=== PATIENT | female | born 1940 | race Caucasian/White ===

== ENCOUNTER 2016-11-01 13:18 | Inpatient (IN) | payer MEDICARE ==
[~2016-11-01] VITALS: Ht 154.9 cm; Wt 58.5 kg
[2016-11-01 14:00] VITALS: BP 123/67
[2016-11-01] MEDS ORDERED: IRBE1TAB43 PO (14:49)
[2016-11-01] MEDS ORDERED: INSU100I13 (14:49)
[2016-11-01] MEDS ORDERED: METF500T7 (14:49)
[2016-11-01] MEDS ORDERED: CIPR-213 (14:49)
[2016-11-01] MEDS ORDERED: LORA1TAB PO (14:49)
[2016-11-01] MEDS ORDERED: INSU100I19 SQ (14:49)
[2016-11-01] MEDS ORDERED: LOSA1TAB37 (14:49)
[2016-11-01] MEDS ORDERED: CLON0.1T PO (14:49)
[2016-11-01] MEDS ORDERED: PANT40TA4 PO (14:49)
[2016-11-01] MEDS ORDERED: BACL-141 PO (14:49)
[2016-11-01] MEDS ORDERED: ALEN70TA46 (14:49)
[2016-11-01] MEDS ORDERED: AMLO5TAB88 PO (14:49)
[2016-11-01] MEDS ORDERED: SAXA2.5T (14:49)
[2016-11-01] MEDS ORDERED: AMLO2.5T45 PO (14:49)
[2016-11-01] MEDS ORDERED: CEPH500C2 PO (14:49)
[2016-11-01] MEDS ORDERED: TRAM50TA3 PO (14:49)
[2016-11-01 16:00] VITALS: BP 93/57
[2016-11-01] MEDS ORDERED: ONDANSETRON HCL 4MG/2ML VIAL IV PRN (16:00)
[2016-11-01] MEDS ORDERED: IPRATROPIUM/ALBUTEROL 0.5-3(2.5)MG/3ML NEB INH PRN (16:00)
[2016-11-01] MEDS ORDERED: CLONIDINE 0.1MG TABLET PO PRN (16:00)
[2016-11-01] MEDS ORDERED: ACETAMINOPHEN 325MG TABLET PO PRN (16:00)
[2016-11-01] MEDS ORDERED: DEXT 5%/0.45% NACL 1000ML 1,000 ML IV SCH (16:15)
[2016-11-01] MEDS ORDERED: LEVOFLOXACIN 500MG PREMIX 100 ML IV SCH (16:30)
[2016-11-01] MEDS ORDERED: METRONIDAZOLE 500 MG PREMIX 100 ML IV SCH (16:30)
[2016-11-01] MEDS ORDERED: DEXTROSE 50% WATER 50ML SYRINGE IV PRN (16:45)
[2016-11-01] MEDS ORDERED: TRAMADOL 50MG TABLET PO PRN (16:45)
[2016-11-01] MEDS: INSULIN LISPRO 100 UNITS/ML SUBCUT SCH ×2 (17:12→21:34)
[2016-11-01] MEDS: BLOOD SUGAR DIAGNOSTIC STRIP TEST SCH ×2 (17:12→21:26)
[2016-11-01] MEDS ORDERED: LEVOFLOXACIN 500MG PREMIX 100 ML IV NR (18:00)
[2016-11-01 20:00] VITALS: BP 143/59
[2016-11-01 20:42] LABS: BASOPHILS % 0.7 % (0.0-2.0); EOSINOPHILS % 2.7 % (0.0-5.0); HEMATOCRIT. 34.9 % (36.0-48.0); HEMOGLOBIN. 11.8 g/dL (12.0-16.0); LYMPHOCYTES % 32.8 % (20.0-50.0); MEAN CORPUSCULAR VOLUME 88.5 fL (81.0-99.0); MEAN PLATELET VOLUME 8.9 fl (7.4-10.4); NEUTROPHILS % 53.8 % (40.0-76.0); PLATELET 236 x1000/uL (130-400); RED BLOOD CELL COUNT 3.94 mill/uL (4.2-5.4); RED CELL DISTRIBUTION WIDTH 13.4 % (11.6-14.6)
[2016-11-01 20:47] LABS: CHLORIDE 100 mEq/L (98-107); INR 0.9; PARTIAL THROMBOPLASTIN TIME 24.6 sec (23.4-31.0); PROTHROMBIN TIME 9.4 sec (9.4-11.6)
[2016-11-01 20:52] LABS: CARBON DIOXIDE 28 mEq/L (21-32)
[2016-11-01] MEDS: DEXT 5%/0.45% NACL 1000ML 1,000 ML IV SCH (22:58)
[2016-11-02] VITALS: BP 129/54
[2016-11-02 04:00] VITALS: BP 102/52
[2016-11-02 07:10] LABS: BASOPHILS % 0.9 % (0.0-2.0); EOSINOPHILS % 4.2 % (0.0-5.0); HEMATOCRIT. 34.3 % (36.0-48.0); HEMOGLOBIN. 11.7 g/dL (12.0-16.0); LYMPHOCYTES % 31.7 % (20.0-50.0); MEAN CORPUSCULAR HEMOGLOBIN 30.2 pg (28.0-32.0); MEAN CORPUSCULAR VOLUME 88.6 fL (81.0-99.0); MEAN PLATELET VOLUME 9.1 fl (7.4-10.4); MONOCYTES % 10.4 % (2.0-8.0); NEUTROPHILS % 52.8 % (40.0-76.0); PLATELET 237 x1000/uL (130-400); RED BLOOD CELL COUNT 3.87 mill/uL (4.2-5.4)
[2016-11-02] MEDS ORDERED: PANTOPRAZOLE 40MG DR TABLET PO SCH (07:20)
[2016-11-02] MEDS: BLOOD SUGAR DIAGNOSTIC STRIP TEST SCH ×2 (07:21→13:17)
[2016-11-02 07:39] LABS: CARBON DIOXIDE 28 mEq/L (21-32); CHLORIDE 101 mEq/L (98-107)
[2016-11-02 08:00] VITALS: BP 102/57
[2016-11-02] MEDS: INSULIN LISPRO 100 UNITS/ML SUBCUT SCH ×2 (09:01→13:36)
[2016-11-02 12:00] VITALS: BP 127/58
[2016-11-02] MEDS: DEXT 5%/0.45% NACL 1000ML 1,000 ML IV SCH (13:37)
[2016-11-02 15:56] VITALS: BP 127/58
[2016-11-02 16:00] VITALS: BP 106/60
== END 2016-11-02 16:30 | disposition home or self-care (01) | DRG 446 ==
LOC: 6EST 13:18
PROVIDERS: ADMIT Internal Medicine Critical Care Medicine; ATTEND Internal Medicine Critical Care Medicine
DX: K80.20 Calculus of gallbladder without cholecystitis without obstruction (principal); E11.9 Type 2 diabetes mellitus without complications; I10 Essential (primary) hypertension; M19.90 Unspecified osteoarthritis, unspecified site; M81.0 Age-related osteoporosis without current pathological fracture; Z96.652 Presence of left artificial knee joint; Z79.2 Long term (current) use of antibiotics; Z79.4 Long term (current) use of insulin; Z79.84 Long term (current) use of oral hypoglycemic drugs; Z79.899 Other long term (current) drug therapy
CPT/HCPCS: 36415; 71010; 74181; 76705; 80048; 80076; 82962; 85025; 85610; 85730; 87040; 93005; J1815; J1956; J3490

== ENCOUNTER 2016-11-04 23:36 | Inpatient (IN) | payer MEDICARE ==
[~2016-11-04] VITALS: Ht 152.4 cm; Wt 57.3 kg
[~2016-11-04 23:36] MED LIST: ALEN70TA46; AMLO2.5T45 PO; AMLO5TAB88 PO; BACL-141 PO; CEPH500C2 PO; CIPR-213; CLON0.1T PO; INSU100I13; INSU100I19 SQ; IRBE1TAB43 PO; LORA1TAB PO; LOSA1TAB37; METF500T7; PANT40TA4 PO; SAXA2.5T; TRAM50TA3 PO
[2016-11-05] MEDS ORDERED: SODIUM CHLORIDE 0.9% 1,000 ML IV ONE (01:21)
[2016-11-05] MEDS ORDERED: SODIUM CHLORIDE 0.9% 1000ML BAG (SEPSIS BOLUS) IV ONE (01:30)
[2016-11-05 02:01] LABS: BASOPHILS % 0.9 % (0.0-2.0); EOSINOPHILS % 1.4 % (0.0-5.0); HEMOGLOBIN. 12.1 g/dL (12.0-16.0); LYMPHOCYTES % 20.8 % (20.0-50.0); MEAN CORPUSCULAR HEMOGLOBIN 30.4 pg (28.0-32.0); MEAN CORPUSCULAR VOLUME 88.1 fL (81.0-99.0); MEAN PLATELET VOLUME 8.6 fl (7.4-10.4); MONOCYTES % 9.6 % (2.0-8.0); NEUTROPHILS % 67.3 % (40.0-76.0); PLATELET 235 x1000/uL (130-400); RED BLOOD CELL COUNT 3.97 mill/uL (4.2-5.4); RED CELL DISTRIBUTION WIDTH 12.9 % (11.6-14.6)
[2016-11-05 02:09] LABS: INR 0.9; PARTIAL THROMBOPLASTIN TIME 24.5 sec (23.4-31.0); PROTHROMBIN TIME 9.8 sec (9.4-11.6)
[2016-11-05 02:18] LABS: CARBON DIOXIDE 27 mEq/L (21-32); CHLORIDE 95 mEq/L (98-107); TROPONIN I 0.25 ng/mL (0.00-0.04)
[2016-11-05 02:44] LABS: AMMONIA 25 uMol/L (<32)
[2016-11-05] MEDS ORDERED: ASPIRIN 81MG TABLET PO ONE (03:15)
[2016-11-05 04:56] LABS: CLARITY URINE CLEAR (CLEAR); COLOR URINE YELLOW (YELLOW); GLUCOSE URINE NEGATIVE (NEGATIVE); KETONES URINE NEGATIVE (NEGATIVE); LEUKOCYTE ESTERASE URINE 1+ (NEGATIVE); NITRITE URINE NEGATIVE (NEGATIVE); OCCULT BLOOD URINE NEGATIVE (NEGATIVE); PROTEIN URINE NEGATIVE (NEGATIVE); UROBILINOGEN URINE 0.2 E.U./dL (0.2-1.0)
[2016-11-05] MEDS ORDERED: HYDROCODONE/ACETAMINOPHEN 5/325MG TABLET PO ONE (08:30)
[2016-11-05] MEDS ORDERED: HYDROCODONE/ACETAMINOPHEN 5/325MG TABLET PO PRN (13:00)
[2016-11-05] MEDS ORDERED: ACETAMINOPHEN 650MG SUPP PR PRN (13:00)
[2016-11-05] MEDS ORDERED: IPRATROPIUM/ALBUTEROL 0.5-3(2.5)MG/3ML NEB INH PRN (13:00)
[2016-11-05] MEDS ORDERED: NA PHOS,M-B/NA PHOS,DI-BA ENEMA 118ML PR PRN (13:00)
[2016-11-05] MEDS ORDERED: CLONIDINE 0.1MG TABLET PO PRN (13:00)
[2016-11-05] MEDS ORDERED: ACETAMINOPHEN 650MG/20.3ML UDC GT PRN (13:00)
[2016-11-05] MEDS ORDERED: MAGNESIUM/ALUMINUM HYDROXIDE/SIMETHICONE 30ML UDC PO PRN (13:00)
[2016-11-05] MEDS ORDERED: DIPHENHYDRAMINE 50MG/ML VIAL IV PRN (13:00)
[2016-11-05 16:00] VITALS: BP 124/47
[2016-11-05] MEDS ORDERED: MECL-109 PO (16:13)
[2016-11-05] MEDS: SODIUM CHLORIDE 0.45% 1,000 ML IV SCH (16:59)
[2016-11-05 17:26] LABS: TROPONIN I 0.13 ng/mL (0.00-0.04)
[2016-11-05] MEDS ORDERED: MECLIZINE 25MG TABLET PO PRN (17:30)
[2016-11-05] MEDS ORDERED: TRAMADOL 50MG TABLET PO PRN (17:45)
[2016-11-05] MEDS ORDERED: DEXTROSE 50% WATER 50ML SYRINGE IV PRN (17:45)
[2016-11-05] MEDS: INSULIN LISPRO 100 UNITS/ML SUBCUT SCH ×2 (18:14→21:00)
[2016-11-05 20:00] VITALS: BP 139/56
[2016-11-05] MEDS: BLOOD SUGAR DIAGNOSTIC STRIP TEST SCH (21:08)
[2016-11-05] MEDS: SODIUM CHLORIDE 0.9% INJ 3ML FLUSH IVF SCH (21:08)
[2016-11-06] VITALS: BP 148/56
[2016-11-06 01:26] LABS: TROPONIN I 0.27 ng/mL (0.00-0.04)
[2016-11-06 04:00] VITALS: BP 146/51
[2016-11-06] MEDS: SODIUM CHLORIDE 0.45% 1,000 ML IV SCH ×2 (05:00→17:05)
[2016-11-06] MEDS: SODIUM CHLORIDE 0.9% INJ 3ML FLUSH IVF SCH ×3 (06:00→21:41)
[2016-11-06 06:28] LABS: BASOPHILS % 0.6 % (0.0-2.0); EOSINOPHILS % 4.4 % (0.0-5.0); HEMATOCRIT. 34.5 % (36.0-48.0); HEMOGLOBIN. 11.9 g/dL (12.0-16.0); LYMPHOCYTES % 32.5 % (20.0-50.0); MEAN CORPUSCULAR HEMOGLOBIN 30.5 pg (28.0-32.0); MEAN CORPUSCULAR VOLUME 88.6 fL (81.0-99.0); MEAN PLATELET VOLUME 8.8 fl (7.4-10.4); NEUTROPHILS % 52.5 % (40.0-76.0); PLATELET 227 x1000/uL (130-400); RED BLOOD CELL COUNT 3.89 mill/uL (4.2-5.4); RED CELL DISTRIBUTION WIDTH 13.2 % (11.6-14.6)
[2016-11-06 06:33] LABS: CARBON DIOXIDE 27 mEq/L (21-32); CHLORIDE 102 mEq/L (98-107); LDL CHOLESTEROL 58 mg/dL (5-100)
[2016-11-06 06:34] LABS: HDL CHOLESTEROL 87 mg/dL (40-59)
[2016-11-06] MEDS: BLOOD SUGAR DIAGNOSTIC STRIP TEST SCH ×4 (07:13→21:34)
[2016-11-06] MEDS ORDERED: PANTOPRAZOLE 40MG DR TABLET PO SCH (07:20)
[2016-11-06 08:11] VITALS: BP 151/58
[2016-11-06] MEDS: AMLODIPINE 2.5MG TABLET PO SCH (08:30)
[2016-11-06] MEDS: HYDROCHLOROTHIAZIDE 12.5MG CAPSULE PO SCH (08:31)
[2016-11-06] MEDS: PANTOPRAZOLE 40MG DR TABLET PO SCH (08:31)
[2016-11-06] MEDS: LOSARTAN POTASSIUM 100 MG TABLET PO SCH (08:31)
[2016-11-06] MEDS: INSULIN LISPRO 100 UNITS/ML SUBCUT SCH ×4 (08:38→21:42)
[2016-11-06] MEDS ORDERED: [UNRECOGNIZED DRUG - OTHER] PO SCH (09:00)
[2016-11-06] MEDS ORDERED: HYDROCHLOROTHIAZIDE PO SCH (09:00)
[2016-11-06] MEDS ORDERED: IRBESARTAN PO SCH (09:00)
[2016-11-06] MEDS: INSULIN DETEMIR UD 100 UNITS/ML SYR SUBCUT SCH (10:00)
[2016-11-06 12:50] VITALS: BP 145/70
[2016-11-06 16:19] VITALS: BP 132/63
[2016-11-06 20:34] VITALS: BP 151/87
[2016-11-06] MEDS: ACETAMINOPHEN 325MG TABLET PO PRN (23:26)
[2016-11-07 00:34] VITALS: BP 116/56
[2016-11-07 04:00] VITALS: BP 138/65
[2016-11-07] MEDS: PANTOPRAZOLE 40MG DR TABLET PO SCH (06:23)
[2016-11-07] MEDS: SODIUM CHLORIDE 0.9% INJ 3ML FLUSH IVF SCH ×3 (06:23→21:47)
[2016-11-07] MEDS: BLOOD SUGAR DIAGNOSTIC STRIP TEST SCH ×4 (06:26→21:50)
[2016-11-07 08:12] VITALS: BP 163/55
[2016-11-07] MEDS: LOSARTAN POTASSIUM 100 MG TABLET PO SCH (08:37)
[2016-11-07] MEDS: HYDROCHLOROTHIAZIDE 12.5MG CAPSULE PO SCH (08:37)
[2016-11-07] MEDS: SODIUM CHLORIDE 0.45% 1,000 ML IV SCH (08:37)
[2016-11-07] MEDS: AMLODIPINE 2.5MG TABLET PO SCH (08:38)
[2016-11-07] MEDS: INSULIN LISPRO 100 UNITS/ML SUBCUT SCH ×4 (08:39→21:55)
[2016-11-07] MEDS ORDERED: REGADENOSON 0.4 MG/5 ML IV SCH (11:00)
[2016-11-07] MEDS: INSULIN DETEMIR UD 100 UNITS/ML SYR SUBCUT SCH (11:23)
[2016-11-07 12:22] VITALS: BP 134/52
[2016-11-07 15:00] LABS: CREATINE KINASE MB FRACTION 1.7 ng/mL (0.5-3.6); T4 FREE 1.12 ng/dL (0.76-1.46); TROPONIN I 0.05 ng/mL (0.00-0.04)
[2016-11-07 16:01] VITALS: BP 129/68
[2016-11-07 20:00] VITALS: BP 126/53
[2016-11-07] MEDS: ACETAMINOPHEN 325MG TABLET PO PRN (21:11)
[2016-11-07 23:30] LABS: CREATINE KINASE MB FRACTION 1.5 ng/mL (0.5-3.6); TROPONIN I 0.05 ng/mL (0.00-0.04)
[2016-11-08] VITALS: BP 124/56
[2016-11-08 04:00] VITALS: BP 119/58
[2016-11-08] MEDS: SODIUM CHLORIDE 0.9% INJ 3ML FLUSH IVF SCH ×2 (06:09→14:01)
[2016-11-08] MEDS: BLOOD SUGAR DIAGNOSTIC STRIP TEST SCH ×2 (06:33→13:11)
[2016-11-08 07:42] LABS: CREATINE KINASE MB FRACTION 1.5 ng/mL (0.5-3.6); TROPONIN I 0.03 ng/mL (0.00-0.04)
[2016-11-08] MEDS: INSULIN LISPRO 100 UNITS/ML SUBCUT SCH ×2 (07:50→13:23)
[2016-11-08] MEDS: HYDROCHLOROTHIAZIDE 12.5MG CAPSULE PO SCH (09:00)
[2016-11-08] MEDS: AMLODIPINE 2.5MG TABLET PO SCH (09:00)
[2016-11-08] MEDS: LOSARTAN POTASSIUM 100 MG TABLET PO SCH (09:00)
[2016-11-08] MEDS ORDERED: FAMOTIDINE 20MG TABLET PO SCH (09:00)
[2016-11-08 09:12] VITALS: BP 148/72
[2016-11-08] MEDS ORDERED: REGADENOSON 0.4 MG/5 ML IV ONE (09:12)
[2016-11-08] MEDS: INSULIN DETEMIR UD 100 UNITS/ML SYR SUBCUT SCH (10:00)
[2016-11-08 12:00] VITALS: BP 155/85
[2016-11-08 12:57] VITALS: BP 155/85
[2016-11-09] MEDS ORDERED: INSULIN DETEMIR UD 100 UNITS/ML SYR SUBCUT SCH (10:00)
== END 2016-11-08 16:40 | DRG 183 ==
LOC: ER 23:36 → 6WST 11-05 03:52 → ENRESERV 11-05 13:44
PROVIDERS: ADMIT Family Medicine; ATTEND Family Medicine
DX: S22.41XA Multiple fractures of ribs, right side, initial encounter for closed fracture (principal); G93.40 Encephalopathy, unspecified; E11.9 Type 2 diabetes mellitus without complications; G90.8 Other disorders of autonomic nervous system; K80.20 Calculus of gallbladder without cholecystitis without obstruction; H91.90 Unspecified hearing loss, unspecified ear; I10 Essential (primary) hypertension; M81.0 Age-related osteoporosis without current pathological fracture; W18.39XA Other fall on same level, initial encounter; Z96.652 Presence of left artificial knee joint; Z79.84 Long term (current) use of oral hypoglycemic drugs; Z79.4 Long term (current) use of insulin; Z79.899 Other long term (current) drug therapy; Y93.89 Activity, other specified; Y92.89 Other specified places as the place of occurrence of the external cause; Y99.8 Other external cause status
CPT/HCPCS: 36415; 70450; 71010; 72100; 72141; 72146; 72148; 73030; 73502; 74176; 76857; 78452; 80053; 80061; 81001; 82140; 82550; 82553; 82962; 83036; 83605; 83690; 83880; 84439; 84443; 84484; 85025; 85379; 85610; 85730; 86850; 86900; 87040; 87086; 93005; 93017; 93306; 93970; 96360; 96361; 97162; 97166; 97530; 97535; 99285; A9500; J1815; J2785; J7030; J7040; A4315

== ENCOUNTER 2016-11-08 16:50 | Inpatient (IN) | payer MEDICARE ==
[~2016-11-08] VITALS: Ht 152.4 cm; Wt 57.2 kg
[~2016-11-08 16:50] MED LIST changes: +MECL-109 PO
[2016-11-08 20:00] VITALS: BP 137/63
[2016-11-08] MEDS ORDERED: NA PHOS,M-B/NA PHOS,DI-BA ENEMA 118ML PR PRN (20:15)
[2016-11-08] MEDS ORDERED: TRAMADOL 50MG TABLET PO PRN (20:15)
[2016-11-08] MEDS ORDERED: DIPHENHYDRAMINE 50MG/ML VIAL IV PRN (20:15)
[2016-11-08] MEDS ORDERED: IPRATROPIUM/ALBUTEROL 0.5-3(2.5)MG/3ML NEB HHN PRN (20:15)
[2016-11-08] MEDS ORDERED: DEXTROSE 50% WATER 50ML SYRINGE IV PRN (20:30)
[2016-11-08 20:35] VITALS: BP 137/63
[2016-11-08] MEDS ORDERED: MECLIZINE 25MG TABLET PO PRN (21:00)
[2016-11-08] MEDS ORDERED: HYDROCODONE/ACETAMINOPHEN 5/325MG TABLET PO PRN (21:00)
[2016-11-08] MEDS: BLOOD SUGAR DIAGNOSTIC STRIP TEST SCH (21:00)
[2016-11-08] MEDS ORDERED: ACETAMINOPHEN 650MG SUPP PR PRN (21:00)
[2016-11-08] MEDS: INSULIN LISPRO 100 UNITS/ML SUBCUT SCH (22:11)
[2016-11-08] MEDS ORDERED: CLONIDINE 0.1MG TABLET PO PRN (23:45)
[2016-11-09] MEDS: ACETAMINOPHEN 325MG TABLET PO PRN ×3 (01:09→18:05)
[2016-11-09] MEDS ORDERED: MAGNESIUM/ALUMINUM HYDROXIDE/SIMETHICONE 30ML UDC PO PRN (03:30)
[2016-11-09] MEDS: BLOOD SUGAR DIAGNOSTIC STRIP TEST SCH ×4 (06:25→21:21)
[2016-11-09] MEDS: SODIUM CHLORIDE 0.9% INJ 3ML FLUSH IVF SCH ×3 (06:25→21:21)
[2016-11-09] MEDS: INSULIN LISPRO 100 UNITS/ML SUBCUT SCH ×4 (06:25→21:31)
[2016-11-09] MEDS ORDERED: PANTOPRAZOLE 40MG DR TABLET PO SCH (07:00)
[2016-11-09 08:00] VITALS: BP 136/67
[2016-11-09] MEDS: FAMOTIDINE 20MG TABLET PO SCH (09:16)
[2016-11-09] MEDS: HYDROCHLOROTHIAZIDE 12.5MG CAPSULE PO SCH (09:16)
[2016-11-09] MEDS: AMLODIPINE 2.5MG TABLET PO SCH (09:17)
[2016-11-09] MEDS: LOSARTAN POTASSIUM 100 MG TABLET PO SCH (09:17)
[2016-11-09] MEDS: INSULIN DETEMIR UD 100 UNITS/ML SYR SUBCUT SCH (09:27)
[2016-11-09] MEDS: BETHANECHOL CHLORIDE 25 MG TABLET PO SCH ×2 (13:45→18:05)
[2016-11-09] MEDS ORDERED: DOCUSATE SODIUM 100MG CAPSULE PO SCH (14:56)
[2016-11-09] MEDS: DOCUSATE SODIUM 100MG CAPSULE PO SCH (18:05)
[2016-11-09 20:00] VITALS: BP 152/65
[2016-11-10] MEDS: SODIUM CHLORIDE 0.9% INJ 3ML FLUSH IVF SCH ×3 (05:33→21:05)
[2016-11-10] MEDS: ACETAMINOPHEN 325MG TABLET PO PRN ×3 (05:34→21:04)
[2016-11-10] MEDS: BLOOD SUGAR DIAGNOSTIC STRIP TEST SCH ×4 (05:34→21:11)
[2016-11-10] MEDS: INSULIN LISPRO 100 UNITS/ML SUBCUT SCH ×4 (06:22→21:06)
[2016-11-10 08:00] VITALS: BP 114/52
[2016-11-10] MEDS: DOCUSATE SODIUM 100MG CAPSULE PO SCH ×2 (09:00→16:48)
[2016-11-10] MEDS: LOSARTAN POTASSIUM 100 MG TABLET PO SCH (09:00)
[2016-11-10] MEDS: AMLODIPINE 2.5MG TABLET PO SCH (09:00)
[2016-11-10] MEDS: HYDROCHLOROTHIAZIDE 12.5MG CAPSULE PO SCH (09:00)
[2016-11-10] MEDS: BETHANECHOL CHLORIDE 25 MG TABLET PO SCH ×3 (09:00→16:49)
[2016-11-10] MEDS: FAMOTIDINE 20MG TABLET PO SCH (09:24)
[2016-11-10] MEDS: INSULIN DETEMIR UD 100 UNITS/ML SYR SUBCUT SCH (09:25)
[2016-11-10] MEDS: ENOXAPARIN 40MG/0.4ML SYR SUBCUT SCH (16:48)
[2016-11-10 20:00] VITALS: BP 151/66
[2016-11-11] MEDS: SODIUM CHLORIDE 0.9% INJ 3ML FLUSH IVF SCH ×2 (06:25→13:18)
[2016-11-11] MEDS: INSULIN LISPRO 100 UNITS/ML SUBCUT SCH ×4 (06:28→21:42)
[2016-11-11] MEDS: BLOOD SUGAR DIAGNOSTIC STRIP TEST SCH ×4 (06:53→21:43)
[2016-11-11 08:00] VITALS: BP 135/57
[2016-11-11 08:56] LABS: PROTHROMBIN TIME 9.9 sec (9.4-11.6)
[2016-11-11 09:07] LABS: BASOPHILS % 0.4 % (0.0-2.0); EOSINOPHILS % 1.6 % (0.0-5.0); HEMATOCRIT. 39.4 % (36.0-48.0); HEMOGLOBIN. 13.3 g/dL (12.0-16.0); LYMPHOCYTES % 16.8 % (20.0-50.0); MEAN CORPUSCULAR HEMOGLOBIN 29.8 pg (28.0-32.0); MEAN CORPUSCULAR VOLUME 88.4 fL (81.0-99.0); MEAN PLATELET VOLUME 8.4 fl (7.4-10.4); MONOCYTES % 9.8 % (2.0-8.0); NEUTROPHILS % 71.4 % (40.0-76.0); PLATELET 324 x1000/uL (130-400); RED BLOOD CELL COUNT 4.45 mill/uL (4.2-5.4); RED CELL DISTRIBUTION WIDTH 13.2 % (11.6-14.6)
[2016-11-11 09:33] LABS: CARBON DIOXIDE 28 mEq/L (21-32); CHLORIDE 96 mEq/L (98-107)
[2016-11-11] MEDS: FAMOTIDINE 20MG TABLET PO SCH (09:58)
[2016-11-11] MEDS: HYDROCHLOROTHIAZIDE 12.5MG CAPSULE PO SCH (09:58)
[2016-11-11] MEDS: BETHANECHOL CHLORIDE 25 MG TABLET PO SCH ×3 (09:58→17:00)
[2016-11-11] MEDS: DOCUSATE SODIUM 100MG CAPSULE PO SCH ×2 (09:58→17:00)
[2016-11-11] MEDS: AMLODIPINE 2.5MG TABLET PO SCH (09:59)
[2016-11-11] MEDS: LOSARTAN POTASSIUM 100 MG TABLET PO SCH (09:59)
[2016-11-11] MEDS: INSULIN DETEMIR UD 100 UNITS/ML SYR SUBCUT SCH (13:17)
[2016-11-11] MEDS: ACETAMINOPHEN 325MG TABLET PO PRN ×2 (15:21→21:41)
[2016-11-11] MEDS: ENOXAPARIN 40MG/0.4ML SYR SUBCUT SCH (15:21)
[2016-11-11] MEDS: METFORMIN HCL 500MG TABLET PO SCH (17:48)
[2016-11-11 17:58] LABS: CLARITY URINE TURBID (CLEAR); COLOR URINE YELLOW (YELLOW); GLUCOSE URINE 3+ (NEGATIVE); KETONES URINE NEGATIVE (NEGATIVE); LEUKOCYTE ESTERASE URINE 3+ (NEGATIVE); NITRITE URINE NEGATIVE (NEGATIVE); OCCULT BLOOD URINE 1+ (NEGATIVE); PROTEIN URINE TRACE (NEGATIVE); SPECIFIC GRAVITY URINE 1.018 (1.005-1.030); UROBILINOGEN URINE 0.2 E.U./dL (0.2-1.0)
[2016-11-11 20:00] VITALS: BP 149/56
[2016-11-11] MEDS: SULFAMETHOXAZOLE/TRIMETHOPRIM 800/160MG TABLET PO SCH (21:57)
[2016-11-12 05:45] LABS: CLARITY URINE TURBID (CLEAR); COLOR URINE YELLOW (YELLOW); GLUCOSE URINE TRACE (NEGATIVE); KETONES URINE NEGATIVE (NEGATIVE); LEUKOCYTE ESTERASE URINE 3+ (NEGATIVE); NITRITE URINE POSITIVE (NEGATIVE); OCCULT BLOOD URINE 1+ (NEGATIVE); PROTEIN URINE NEGATIVE (NEGATIVE); SPECIFIC GRAVITY URINE 1.016 (1.005-1.030); UROBILINOGEN URINE 0.2 E.U./dL (0.2-1.0)
[2016-11-12] MEDS: BLOOD SUGAR DIAGNOSTIC STRIP TEST SCH ×4 (06:17→21:00)
[2016-11-12] MEDS: INSULIN LISPRO 100 UNITS/ML SUBCUT SCH ×4 (06:17→21:36)
[2016-11-12 06:46] LABS: CARBON DIOXIDE 27 mEq/L (21-32); CHLORIDE 99 mEq/L (98-107)
[2016-11-12 08:00] VITALS: BP 145/58
[2016-11-12] MEDS: DOCUSATE SODIUM 100MG CAPSULE PO SCH ×2 (09:00→17:00)
[2016-11-12] MEDS: BETHANECHOL CHLORIDE 25 MG TABLET PO SCH ×3 (09:00→17:00)
[2016-11-12] MEDS: LOSARTAN POTASSIUM 100 MG TABLET PO SCH (10:04)
[2016-11-12] MEDS: METFORMIN HCL 500MG TABLET PO SCH ×2 (10:05→17:51)
[2016-11-12] MEDS: HYDROCHLOROTHIAZIDE 12.5MG CAPSULE PO SCH (10:06)
[2016-11-12] MEDS: SULFAMETHOXAZOLE/TRIMETHOPRIM 800/160MG TABLET PO SCH ×2 (10:07→21:35)
[2016-11-12] MEDS: FAMOTIDINE 20MG TABLET PO SCH (10:07)
[2016-11-12] MEDS: AMLODIPINE 2.5MG TABLET PO SCH (10:08)
[2016-11-12] MEDS: INSULIN DETEMIR UD 100 UNITS/ML SYR SUBCUT SCH (10:16)
[2016-11-12] MEDS: ENOXAPARIN 40MG/0.4ML SYR SUBCUT SCH (15:35)
[2016-11-12 20:00] VITALS: BP 128/50
[2016-11-12] MEDS: ACETAMINOPHEN 325MG TABLET PO PRN ×2 (20:56→21:35)
[2016-11-13] MEDS: BLOOD SUGAR DIAGNOSTIC STRIP TEST SCH ×4 (05:44→21:54)
[2016-11-13] MEDS: INSULIN LISPRO 100 UNITS/ML SUBCUT SCH ×4 (06:21→22:04)
[2016-11-13] MEDS: ACETAMINOPHEN 325MG TABLET PO PRN (06:24)
[2016-11-13 08:00] VITALS: BP_SYST 130; BP_SYST 144; BP_DIAS 52; BP_DIAS 62
[2016-11-13] MEDS: SULFAMETHOXAZOLE/TRIMETHOPRIM 800/160MG TABLET PO SCH ×2 (08:28→21:51)
[2016-11-13] MEDS: METOCLOPRAMIDE HCL 5MG TABLET PO SCH ×3 (08:28→17:24)
[2016-11-13] MEDS: DOCUSATE SODIUM 100MG CAPSULE PO SCH ×2 (08:29→17:24)
[2016-11-13] MEDS: AMLODIPINE 2.5MG TABLET PO SCH (08:29)
[2016-11-13] MEDS: METFORMIN HCL 500MG TABLET PO SCH ×2 (08:29→17:24)
[2016-11-13] MEDS: BETHANECHOL CHLORIDE 25 MG TABLET PO SCH ×3 (08:29→17:24)
[2016-11-13] MEDS: FAMOTIDINE 20MG TABLET PO SCH (08:29)
[2016-11-13] MEDS: HYDROCHLOROTHIAZIDE 12.5MG CAPSULE PO SCH (08:29)
[2016-11-13] MEDS: LOSARTAN POTASSIUM 100 MG TABLET PO SCH (08:29)
[2016-11-13] MEDS: INSULIN DETEMIR UD 100 UNITS/ML SYR SUBCUT SCH (10:28)
[2016-11-13] MEDS ORDERED: HYDROCODONE/ACETAMINOPHEN 5/325MG TABLET PO PRN ×2 (14:00→23:00)
[2016-11-13] MEDS ORDERED: TRAMADOL 50MG TABLET PO PRN (14:00)
[2016-11-13] MEDS: SIMETHICONE 80MG TABLET CHEW PO PRN ×2 (14:16→21:51)
[2016-11-13] MEDS: ENOXAPARIN 40MG/0.4ML SYR SUBCUT SCH (14:46)
[2016-11-13 19:00] VITALS: BP 115/43
[2016-11-14] MEDS: BLOOD SUGAR DIAGNOSTIC STRIP TEST SCH ×4 (07:03→21:00)
[2016-11-14] MEDS: INSULIN LISPRO 100 UNITS/ML SUBCUT SCH ×4 (07:14→21:35)
[2016-11-14 08:00] VITALS: BP 171/67
[2016-11-14] MEDS: AMLODIPINE 2.5MG TABLET PO SCH (08:09)
[2016-11-14] MEDS: HYDROCHLOROTHIAZIDE 12.5MG CAPSULE PO SCH (08:09)
[2016-11-14] MEDS: METFORMIN HCL 500MG TABLET PO SCH ×2 (08:09→17:11)
[2016-11-14] MEDS: SULFAMETHOXAZOLE/TRIMETHOPRIM 800/160MG TABLET PO SCH ×2 (08:09→21:32)
[2016-11-14] MEDS: LOSARTAN POTASSIUM 100 MG TABLET PO SCH (08:09)
[2016-11-14] MEDS: BETHANECHOL CHLORIDE 25 MG TABLET PO SCH ×3 (08:09→17:11)
[2016-11-14] MEDS: FAMOTIDINE 20MG TABLET PO SCH (08:09)
[2016-11-14] MEDS: METOCLOPRAMIDE HCL 5MG TABLET PO SCH ×3 (08:09→17:11)
[2016-11-14] MEDS: DOCUSATE SODIUM 100MG CAPSULE PO SCH ×2 (08:13→17:11)
[2016-11-14] MEDS: SIMETHICONE 80MG TABLET CHEW PO PRN (08:16)
[2016-11-14] MEDS: INSULIN DETEMIR UD 100 UNITS/ML SYR SUBCUT SCH (10:59)
[2016-11-14 13:05] VITALS: BP 131/61
[2016-11-14] MEDS: ENOXAPARIN 40MG/0.4ML SYR SUBCUT SCH (15:49)
[2016-11-14] MEDS: LIDOCAINE 5% PATCH TOP SCH (15:51)
[2016-11-14 20:00] VITALS: BP 132/51
[2016-11-14 23:47] VITALS: BP 132/52
[2016-11-15] MEDS: BLOOD SUGAR DIAGNOSTIC STRIP TEST SCH ×2 (06:30→11:20)
[2016-11-15] MEDS: INSULIN LISPRO 100 UNITS/ML SUBCUT SCH ×2 (06:39→13:36)
[2016-11-15 08:00] VITALS: BP 120/56
[2016-11-15 08:39] VITALS: BP 120/56
[2016-11-15] MEDS: DOCUSATE SODIUM 100MG CAPSULE PO SCH (08:39)
[2016-11-15] MEDS: SULFAMETHOXAZOLE/TRIMETHOPRIM 800/160MG TABLET PO SCH (08:39)
[2016-11-15] MEDS: LIDOCAINE 5% PATCH TOP SCH (08:39)
[2016-11-15] MEDS: METOCLOPRAMIDE HCL 5MG TABLET PO SCH ×2 (08:40→13:33)
[2016-11-15] MEDS: BETHANECHOL CHLORIDE 25 MG TABLET PO SCH ×2 (08:40→13:33)
[2016-11-15] MEDS: METFORMIN HCL 500MG TABLET PO SCH (08:40)
[2016-11-15] MEDS: FAMOTIDINE 20MG TABLET PO SCH (08:41)
[2016-11-15] MEDS: HYDROCHLOROTHIAZIDE 12.5MG CAPSULE PO SCH (08:42)
[2016-11-15] MEDS: LOSARTAN POTASSIUM 100 MG TABLET PO SCH (08:42)
[2016-11-15] MEDS: AMLODIPINE 2.5MG TABLET PO SCH (08:43)
[2016-11-15] MEDS: INSULIN DETEMIR UD 100 UNITS/ML SYR SUBCUT SCH (11:20)
[2016-11-15] MEDS: ACETAMINOPHEN 325MG TABLET PO PRN (14:48)
== END 2016-11-15 14:55 | DRG 551 ==
PROVIDERS: ADMIT Psychiatry & Neurology Neurology; ATTEND Family Medicine
DX: S32.029A Unspecified fracture of second lumbar vertebra, initial encounter for closed fracture (principal); G93.40 Encephalopathy, unspecified; E11.9 Type 2 diabetes mellitus without complications; N39.0 Urinary tract infection, site not specified; S22.41XA Multiple fractures of ribs, right side, initial encounter for closed fracture; G90.8 Other disorders of autonomic nervous system; E87.1 Hypo-osmolality and hyponatremia; N32.89 Other specified disorders of bladder; B96.89 Other specified bacterial agents as the cause of diseases classified elsewhere; I10 Essential (primary) hypertension; K80.20 Calculus of gallbladder without cholecystitis without obstruction; Z96.652 Presence of left artificial knee joint; W18.39XA Other fall on same level, initial encounter; G89.29 Other chronic pain; M19.90 Unspecified osteoarthritis, unspecified site; M79.7 Fibromyalgia; M81.0 Age-related osteoporosis without current pathological fracture; R62.7 Adult failure to thrive; F41.9 Anxiety disorder, unspecified; H91.90 Unspecified hearing loss, unspecified ear; Z79.899 Other long term (current) drug therapy
CPT/HCPCS: 36415; 74000; 80048; 81001; 82962; 85025; 85610; 87077; 87086; 87186; 97110; 97112; 97116; 97162; 97167; 97530; 97535; J1650; J1815; J8597